=== PATIENT | female | born 1955 | race Caucasian/White ===

== ENCOUNTER 2018-02-10 08:27 | Emergency (ER) | payer OTHER, BC ==
[~2018-02-10] VITALS: Ht 162.6 cm; Wt 69.8 kg
[~2018-02-10 08:27] MED LIST: ADDERALL; CARDIZEM CD360 MG; LIPITOR; LISINOPRIL20 MG; METFORMIN; NORCO 5-325 TA1 EACH PO; SINGULAIR; SYNTHROID
[2018-02-10 09:22] LABS: ABSOLUTE LYMPHOCYTES 5.1 thou/uL (0.8-5.3); ABSOLUTE MONOCYTES 1.1 thou/uL (0.0-1.2); ABSOLUTE NEUTROPHILS 9.8 thou/uL (1.6-8.1); BASOPHILS 0.2 %; HEMATOCRIT 30.8 % (37.0-47.0); HEMOGLOBIN 9.8 gm/dL (12.0-15.0); LYMPHOCYTES 31.7 %; MCH 29.8 pg (26.0-34.0); MCHC 31.7 g/dL (28.0-37.0); MCV 94.1 fL (80.0-100.0); MONOCYTES 6.7 %; MPV 9.8 fl. (7.2-11.1); NUCLEATED RBCS 0 /100WBC; PLATELET COUNT* 141 thou/uL (150-400); POLYS 61.4 %; RBC 3.27 mil/uL (4.20-5.00); RDW-CV 14.8 % (10.5-14.5)
[2018-02-10 09:27] LABS: CALCIUM 6.2 mg/dL (8.5-10.1); CREATININE 1.2 mg/dL (0.6-1.3); POTASSIUM 3.2 mmol/L (3.5-5.1)
[2018-02-10 09:31] LABS: APTT 23.3 Seconds (25.0-31.3); INR 1.6; PROTIME 15.9 Seconds (9.20-11.50)
[2018-02-10 09:34] LABS: ALBUMIN 1.9 g/dL (3.4-5.0); TOTAL BILIRUBIN 0.4 mg/dL (<0.1-1.0)
[2018-02-10 09:41] LABS: TROPONIN-I LEVEL 3.11 ng/mL (<0.06)
[2018-02-10 10:00] LABS: BE -21.4 mmol/L (-2 to +3); PO2 VENOUS 43.8 mmHg (35.0-45.0)
[2018-02-10 10:04] LABS: HCO3 9.6 mmol/L (22.0-26.0)
[2018-02-10 11:02] VITALS: BP 00/00
--- NOTE | 2018-02-10 14:14 | EKG ---
[place] [address] ELECTROCARDIOGRAM REPORT Name: ETHAN FLORES Room: [facility]#: [id number] Admission: 02/10/18 Attend Phys: Discharge: 02/10/18 Date of : 51 Report #: [id number] THIS REPORT FOR: //name// [facility] ED Test Date: 2018-02-10 Test Time: 08:41:31 Pat Name: ETHAN FLORES Department: Room: Gender: F Building Rental Manager: Juan Jose DIOP : 1955 Requested By: Cheyenne Asencio Order Number: [id number] MD: Shin Yi Measurements Intervals [place] Rate: 89 P: 43 NE: 151 QRS: -53 QRSD: 136 T: 119 QT: 451 QTc: 549 Interpretive Statements Sinus rhythm LAD LBBB No previous ECG available for comparison Electronically Signed On 02-10-2018 14:14:44 CDT by Shin Yi [email or web address] <ELECTRONICALLY SIGNED> By: Shin Yi MD, [facility] 02/10/18 1414 0841 0841 Shin Yi MD, FACC /EPI
--- NOTE | 2018-02-10 14:16 | EKG ---
[place] [address] ELECTROCARDIOGRAM REPORT Name: ETHAN FLORES Room: [facility]#: [id number] Admission: 02/10/18 Attend Phys: Discharge: 02/10/18 Date of : 51 Report #: [id number] THIS REPORT FOR: //name// [facility] ED Test Date: 2018-02-10 Test Time: 08:42:24 Pat Name: ETHAN FLORES Department: Room: Gender: F Cop Breaker: Juan Jose DIOP : 1955 Requested By: Cheyenne Asencio Order Number: [id number] MD: Shin Yi Measurements Intervals [place] Rate: 97 P: 39 MT: 161 QRS: -52 QRSD: 136 T: 119 QT: 401 QTc: 510 Interpretive Statements Sinus rhythm with consecutive pvc's LEFT BUNDLE BRANCH BLOCK with LAD Electronically Signed On 02-10-2018 14:16:11 CDT by Shin Yi [email or web address] <ELECTRONICALLY SIGNED> By: Shin Yi MD, [facility] 02/10/18 1416 0842 0842 Shin Yi MD, FACC /EPI
--- NOTE | 2018-02-10 14:17 | EKG ---
[place] [address] ELECTROCARDIOGRAM REPORT Name: ETHAN FLORES Room: [facility]#: [id number] Admission: 02/10/18 Attend Phys: Discharge: 02/10/18 Date of : 51 Report #: [id number] THIS REPORT FOR: //name// [facility] ED Test Date: 2018-02-10 Test Time: 09:14:41 Pat Name: ETHAN FLORES Department: Room: Gender: F Chief Business Officer: AG : 1955 Requested By: Cheyenne Asencio Order Number: [id number] MD: Shin Yi Measurements Intervals [place] Rate: 61 P: 102 MI: 315 QRS: -69 QRSD: 143 T: 103 QT: 466 QTc: 470 Interpretive Statements Sinus rhythm Prolonged MI interval LEFT ANTERIOR FASCICULAR BLOCK with RBBB Baseline wander in lead(s) V1 Electronically Signed On 02-10-2018 14:17:20 CDT by Shin Yi [email or web address] <ELECTRONICALLY SIGNED> By: Shin Yi MD, [facility] 02/10/18 1417 3 3 Shin Yi MD, FACC /EPI
--- NOTE | 2018-02-10 14:18 | EKG ---
[place] [address] ELECTROCARDIOGRAM REPORT Name: ETHAN FLORES Room: [facility]#: [id number] Admission: 02/10/18 Attend Phys: Discharge: 02/10/18 Date of : 51 Report #: [id number] THIS REPORT FOR: //name// [facility] ED Test Date: 2018-02-10 Test Time: 08:30:14 Pat Name: ETHAN FLORES Department: Room: Gender: F Manager Of Medical: Juan Jose DIOP : 1955 Requested By: Cheyenne Asencio Order Number: [id number] MD: Shin Yi Measurements Intervals [place] Rate: 153 P: 0 DE: 108 QRS: -62 QRSD: 145 T: 119 QT: 387 QTc: 618 Interpretive Statements wide complex tachycardia left axis No previous ECG available for comparison Electronically Signed On 02-10-2018 14:18:32 CDT by Shin Yi [email or web address] <ELECTRONICALLY SIGNED> By: Shin Yi MD, [facility] 02/10/18 1418 0830 0830 Shin Yi MD, FACC /EPI
== END 2018-02-10 12:32 ==
LOC: M.ERS 08:27
PROVIDERS: Personal Emergency Response Attendant
DX: I46.9 Cardiac arrest, cause unspecified (principal); A41.9 Sepsis, unspecified organism; J18.9 Pneumonia, unspecified organism; K21.9 Gastro-esophageal reflux disease without esophagitis; E78.00 Pure hypercholesterolemia, unspecified; E03.9 Hypothyroidism, unspecified